=== PATIENT | male | born 1990 | race Caucasian/White ===

== ENCOUNTER 2016-08-18 21:06 | Emergency (ER) | payer OTHER ==
[~2016-08-18] VITALS: Ht 182.9 cm; Wt 103.0 kg
[~2016-08-18 21:06] MED LIST: NAPROSYN500 MG PO
[2016-08-18] MEDS ORDERED: NORFLEX30 MG/M1 PO (22:22)
[2016-08-18] MEDS ORDERED: TRAMADOL HYDROC50 MG PO (22:22)
[2016-08-18] MEDS ORDERED: ORPHENADRINE C100 M1 PO (22:34)
[2016-08-18 22:42] VITALS: BP 137/74
== END 2016-08-18 22:45 | disposition home or self-care (01) | DRG 563 ==
LOC: ED 21:06
DX: S46.911A Strain of unspecified muscle, fascia and tendon at shoulder and upper arm level, right arm, initial encounter (principal); S40.011A Contusion of right shoulder, initial encounter; V69.88XA Occupant (driver) (passenger) of heavy transport vehicle injured in other specified transport accidents, initial encounter; Y93.89 Activity, other specified

== ENCOUNTER 2016-10-22 09:51 | Emergency (ER) | payer OTHER ==
[~2016-10-22] VITALS: Ht 182.9 cm; Wt 100.0 kg
[~2016-10-22 09:51] MED LIST changes: +NORFLEX30 MG/M1 PO; +ORPHENADRINE C100 M1 PO; +TRAMADOL HYDROC50 MG PO
[2016-10-22 11:00] VITALS: BP 118/63
== END 2016-10-22 11:01 | disposition home or self-care (01) | DRG 951 ==
LOC: ED 09:51
DX: Z20.811 Contact with and (suspected) exposure to meningococcus (principal)

== ENCOUNTER 2019-03-22 | Emergency (ER) | payer OTHER | END 2019-03-22 18:58 | disposition home or self-care (01) | DRG 951 | DX: Z20.89 Contact with and (suspected) exposure to other communicable diseases (principal) ==

== ENCOUNTER 2019-12-31 13:57 | Emergency (ER) | payer OTHER ==
[~2019-12-31] VITALS: Ht 188 cm; Wt 110.0 kg
[2019-12-31 15:24] VITALS: BP 141/72
[2019-12-31] MEDS ORDERED: CEPHALEXIN500 M1 PO (15:26)
== END 2019-12-31 15:25 | disposition home or self-care (01) | DRG 605 ==
LOC: ED 13:57
PROC: 0HQGXZZ Repair Left Hand Skin, External Approach (ICD-10-PCS; principal; 2019-12-31)
DX: S61.217A Laceration without foreign body of left little finger without damage to nail, initial encounter (principal); W25.XXXA Contact with sharp glass, initial encounter; Y93.89 Activity, other specified; Y99.0 Civilian activity done for income or pay